=== PATIENT | female | born 1990 | race Caucasian/White ===

== ENCOUNTER 2017-06-10 19:18 | Emergency (ER) | payer OTHER ==
[2017-06-10 19:56] LABS: BASO % 0.2 % (0.0-1.0); EOS # 0.2 10^3/uL (0.0-0.50); EOS % 1.4 % (0.0-3.0); HEMATOCRIT 33.5 % (36.0-47.0); HEMOGLOBIN 11.8 g/dl (12.0-16.0); IMMATURE GRANULOCYTE % 0.3 % (0-0); LYMPH # 2.3 10^3/uL (1.5-6.5); LYMPH % 18.9 % (24.0-44.0); MEAN CORPUSCULAR HEMOGLOBIN 31.5 pg (27.0-33.0); MEAN CORPUSCULAR HGB CONC 35.2 g/dl (32.0-36.5); MEAN CORPUSCULAR VOLUME 89.3 fl (80.0-96.0); MONO # 0.8 10^3/uL (0.0-0.8); NEUTROPHILS # 8.7 10^3/uL (1.8-7.7); NEUTROPHILS % 72.2 % (36.0-66.0); PLATELET COUNT, AUTOMATED 243 10^3/uL (150-450); RED BLOOD COUNT 3.75 10^6/uL (4.00-5.40); RED CELL DISTRIBUTION WIDTH 12.2 % (11.5-14.5); WHITE BLOOD COUNT 12.1 10^3/uL (4.0-10.0)
[2017-06-10 20:35] LABS: HCG, SERUM QUANTITATIVE 36359 MIU/ML
[2017-06-10 21:47] LABS: TYPE AND SCREEN 1 1
[2017-06-10] MEDS: RHOGAM 300 MCG (1500 IU) INJ (J2790) IM (22:08)
== END 2017-06-10 22:29 | disposition home or self-care (01) ==
LOC: M ED 19:18
DX: O20.0 Threatened abortion (principal); O20.8 Other hemorrhage in early pregnancy; Z3A.13 13 weeks gestation of pregnancy; Z88.1 Allergy status to other antibiotic agents; Z88.2 Allergy status to sulfonamides; Z88.8 Allergy status to other drugs, medicaments and biological substances
CPT/HCPCS: 76801

== ENCOUNTER 2017-11-27 15:51 | Outpatient (CLI) | payer OTHER | END 2017-11-27 20:18 | disposition home or self-care (01) | LOC: M LDO 15:51 | DX: O47.03 False labor before 37 completed weeks of gestation, third trimester (principal); Z3A.36 36 weeks gestation of pregnancy; O32.1XX0 Maternal care for breech presentation, not applicable or unspecified; O99.843 Bariatric surgery status complicating pregnancy, third trimester; O99.343 Other mental disorders complicating pregnancy, third trimester; F32.9 Major depressive disorder, single episode, unspecified; F41.9 Anxiety disorder, unspecified | CPT/HCPCS: 76820 ==

== ENCOUNTER 2017-11-30 06:19 | Inpatient (IN) | payer OTHER ==
[2017-11-30] MEDS ORDERED: LR 1,000 ML IV (06:41)
[2017-11-30] MEDS: BUPIVACAINE HCL 0.25% 10 ML VIAL SC (06:45)
[2017-11-30] MEDS: BICITRA 30ML SOLN UDC PO (06:45)
[2017-11-30] MEDS: LACTATED RINGER'S 1000 ML IV (06:45)
[2017-11-30] MEDS ORDERED: MORPHINE PRES-FREE INJ 10 MG/10 ML VIAL (J2274) As Ordered (06:48)
[2017-11-30] MEDS ORDERED: BICITRA 30ML SOLN UDC As Ordered (06:48)
[2017-11-30] MEDS ORDERED: ceFAZolin 2 GM/D5W 50 ML IV BAG (J0690 PER 500MG) As Ordered (06:50)
[2017-11-30] MEDS ORDERED: BUPIVACAINE HCL 0.25% 10 ML VIAL As Ordered (06:52)
[2017-11-30] MEDS ORDERED: BUPIVACAINE HCL 0.25% 30 ML VIAL As Ordered (06:52)
[2017-11-30] MEDS ORDERED: NALBUPHINE HCL 10 MG/ML AMP (J2300) IV ×2 (06:55→08:15)
[2017-11-30] MEDS ORDERED: NALOXONE INJ 0.4 MG/1 ML VIAL (J2310) IV ×2 (06:55)
[2017-11-30 06:56] LABS: HEMATOCRIT 36.6 % (36.0-47.0); HEMOGLOBIN 12.2 g/dl (12.0-15.5); MEAN CORPUSCULAR HEMOGLOBIN 28.5 pg (27.0-33.0); MEAN CORPUSCULAR HGB CONC 33.3 g/dl (32.0-36.5); MEAN CORPUSCULAR VOLUME 85.5 fl (80.0-96.0); PLATELET COUNT, AUTOMATED 224 10^3/uL (150-450); RED BLOOD COUNT 4.28 10^6/uL (4.00-5.40); RED CELL DISTRIBUTION WIDTH 13.3 % (11.5-14.5); WHITE BLOOD COUNT 11.9 10^3/uL (4.0-10.0)
[2017-11-30] MEDS ORDERED: OXYTOCIN INJ 10 UNITS/ML VIAL (J2590) As Ordered ×2 (07:35)
[2017-11-30 07:51] LABS: CORD GAS ABE A -5.3; CORD GAS ABE V -4.5; CORD GAS HCO3 A 22.7 MEQ/L; CORD GAS HCO3 V 21.9 MEQ/L; CORD GAS O2 SAT A 25.3 %; CORD GAS O2 SAT V 36.7 %; CORD GAS PCO2 A 53.9 mmHg; CORD GAS PCO2 V 44.8 mmHg; CORD GAS PH A 7.242 UNITS; CORD GAS PH V 7.307 UNITS; CORD GAS PO2 A 16.6 mmHg; CORD GAS PO2 V 18.8 mmHg; CORD GAS SBC A 18.5 MEQ/L; CORD GAS SBC V 19.3 MEQ/L; CORD GAS TCO2 A 24.3 MEQ/L; CORD GAS TCO2 V 23.3 MEQ/L
[2017-11-30] MEDS ORDERED: OXYTOCIN DRIP 30 UNITS in APPROPRIATE DILUENT 1 EA IV (07:55)
[2017-11-30] MEDS ORDERED: OXYTOCIN INJ 10 UNITS/ML VIAL (J2590) IV (08:00)
[2017-11-30] MEDS ORDERED: METHYLERGONOVINE MALEATE 0.2 MG TAB PO (08:00)
[2017-11-30] MEDS ORDERED: MEASLES,MUMPS,RUBELLA VACCINE INJ (MMR-II) (90707) SC (08:00)
[2017-11-30] MEDS ORDERED: RHOGAM 300 MCG (1500 IU) INJ (J2790) IM (08:00)
[2017-11-30] MEDS ORDERED: ANUSOL HC CREAM 30GM TOP (08:00)
[2017-11-30] MEDS ORDERED: KETOROLAC 30 MG/ML VIAL (J1885) IV (08:00)
[2017-11-30] MEDS ORDERED: DOCUSATE SODIUM 100 MG CAP PO (08:00)
[2017-11-30] MEDS ORDERED: MOM 30ML SUSPENSION UDC PO (08:00)
[2017-11-30] MEDS ORDERED: diphenhydrAMINE INJ 50MG/ML VIAL (J1200) IV (08:15)
[2017-11-30] MEDS ORDERED: HYDROMORPHONE HCL 0.5 MG/ 0.5 ML SYRINGE (J1170 PER 1) IV (08:15)
[2017-11-30] MEDS ORDERED: fentaNYL 100 MCG/2 ML INJECTION (J3010) IV (08:15)
[2017-11-30] MEDS ORDERED: ONDANSETRON 4MG/2ML VIAL (J2405) IV (08:15)
[2017-11-30] MEDS ORDERED: PERCOCET 5MG/325MG TAB PO (08:15)
[2017-11-30] MEDS ORDERED: fentaNYL 100 MCG/2 ML INJECTION (J3010) As Ordered (08:59)
[2017-11-30] MEDS ORDERED: ONDANSETRON 4MG/2ML VIAL (J2405) As Ordered (09:00)
[2017-11-30] MEDS: PRENATAL VITAMINS CHEWABLE TABLET PO (09:00)
[2017-11-30] MEDS: LR 1,000 ML IV ×3 (10:10→23:55)
[2017-11-30] MEDS: METOCLOPRAMIDE INJ 10MG/2ML VIAL (J2765) IV (10:19)
[2017-11-30] MEDS: PERCOCET 5MG/325MG TAB PO ×2 (13:10→20:09)
[2017-11-30] MEDS: ONDANSETRON 4MG/2ML VIAL (J2405) IV (15:36)
[2017-12-01] MEDS: PERCOCET 5MG/325MG TAB PO ×5 (00:19→21:01)
[2017-12-01 07:01] LABS: HEMATOCRIT 31.5 % (36.0-47.0); HEMOGLOBIN 10.3 g/dl (12.0-15.5); MEAN CORPUSCULAR HEMOGLOBIN 28.5 pg (27.0-33.0); MEAN CORPUSCULAR HGB CONC 32.7 g/dl (32.0-36.5); MEAN CORPUSCULAR VOLUME 87.3 fl (80.0-96.0); PLATELET COUNT, AUTOMATED 165 10^3/uL (150-450); RED BLOOD COUNT 3.61 10^6/uL (4.00-5.40); RED CELL DISTRIBUTION WIDTH 13.2 % (11.5-14.5); WHITE BLOOD COUNT 12.3 10^3/uL (4.0-10.0)
[2017-12-01] MEDS: PRENATAL VITAMINS CHEWABLE TABLET PO (08:27)
[2017-12-01] MEDS: MORPHINE 10 MG/ML 1ML VIAL (J2270) IM (19:28)
[2017-12-02] MEDS: PERCOCET 5MG/325MG TAB PO ×3 (01:52→11:40)
[2017-12-02] MEDS: PRENATAL VITAMINS CHEWABLE TABLET PO (08:55)
== END 2017-12-02 12:25 | disposition home or self-care (01) | DRG 766 ==
LOC: M LDO 06:19 → M LDI 06:36 → M OBS 10:00
PROC: 10D00Z1 Extraction of Products of Conception, Low, Open Approach (ICD-10-PCS; principal; 2017-11-30 06:49)
DX: O32.1XX0 Maternal care for breech presentation, not applicable or unspecified (principal); O99.844 Bariatric surgery status complicating childbirth; Z3A.37 37 weeks gestation of pregnancy; E28.2 Polycystic ovarian syndrome; O99.284 Endocrine, nutritional and metabolic diseases complicating childbirth; O99.344 Other mental disorders complicating childbirth; F41.9 Anxiety disorder, unspecified; O69.82X0 Labor and delivery complicated by other cord entanglement, without compression, not applicable or unspecified; Z37.0 Single live birth

== ENCOUNTER 2018-04-23 19:37 | Emergency (ER) | payer OTHER ==
[2018-04-23] MEDS: ONDANSETRON 4 MG ORAL DISINTEGRATING TAB (Q0162 PER 1MG) PO (21:46)
[2018-04-23] MEDS: ACETAMINOPHEN 325 MG TAB PO (21:47)
[2018-04-23 22:01] LABS: BASO % 0.5 % (0.0-1.0); EOS # 0.1 10^3/uL (0.0-0.50); EOS % 1.8 % (0.0-3.0); HEMATOCRIT 35.6 % (36.0-47.0); HEMOGLOBIN 11.4 g/dl (12.0-15.5); IMMATURE GRANULOCYTE % 0.3 % (0-3.0); LYMPH # 2.7 10^3/uL (1.5-6.5); LYMPH % 35.8 % (24.0-44.0); MEAN CORPUSCULAR HEMOGLOBIN 27.7 pg (27.0-33.0); MEAN CORPUSCULAR VOLUME 86.4 fl (80.0-96.0); MONO # 0.6 10^3/uL (0.0-0.8); MONO % 7.2 % (0.0-5.0); NEUTROPHILS # 4.1 10^3/uL (1.8-7.7); NEUTROPHILS % 54.4 % (36.0-66.0); PLATELET COUNT, AUTOMATED 271 10^3/uL (150-450); RED BLOOD COUNT 4.12 10^6/uL (4.00-5.40); RED CELL DISTRIBUTION WIDTH 14.3 % (11.5-14.5); WHITE BLOOD COUNT 7.6 10^3/uL (4.0-10.0)
[2018-04-23 22:18] LABS: CONTROL LINE HCG INT CTR LINE PRESENT; HCG, SERUM QUALITATIVE NEGATIVE (NEGATIVE)
[2018-04-23 22:29] LABS: ANION GAP 10 MEQ/L (8-16); BLOOD UREA NITROGEN 10 MG/DL (7-18); CALCIUM LEVEL 8.3 MG/DL (8.5-10.1); CARBON DIOXIDE LEVEL 27 MEQ/L (21-32); CHLORIDE LEVEL 105 MEQ/L (98-107); CREATININE FOR GFR 0.56 MG/DL (0.55-1.30); GLOMERULAR FILTRATION RATE > 60.0 (>60); GLUCOSE, FASTING 102 MG/DL (70-100); POTASSIUM SERUM 3.7 MEQ/L (3.5-5.1); SODIUM LEVEL 142 MEQ/L (136-145)
[2018-04-24] MEDS: diphenhydrAMINE 50 MG CAP PO (00:43)
[2018-04-24] MEDS: METOCLOPRAMIDE 10 MG TAB PO (00:43)
== END 2018-04-24 00:46 | disposition home or self-care (01) ==
LOC: M ED 04-24 00:46
DX: S06.0X0A Concussion without loss of consciousness, initial encounter (principal); V49.49XA Driver injured in collision with other motor vehicles in traffic accident, initial encounter; Y92.410 Unspecified street and highway as the place of occurrence of the external cause; R55 Syncope and collapse; Z79.899 Other long term (current) drug therapy; Z88.1 Allergy status to other antibiotic agents; Z88.2 Allergy status to sulfonamides; Z88.8 Allergy status to other drugs, medicaments and biological substances
CPT/HCPCS: Q0162

== ENCOUNTER 2020-02-22 18:25 | Emergency (ER) | payer OTHER ==
[~2020-02-22] VITALS: Ht 160 cm; Wt 82.5 kg
[~2020-02-22 18:25] MED LIST: COLA100C5 PO; CYMB60CA3 PO; GAS-80CH PO; OXYC1TAB23 PO; PREN1CHW PO; REGL10TA6 PO
--- NOTE | 2020-02-22 19:25 | REPVR ---
PROCEDURE INFORMATION: Exam: CT Maxillofacial Without Contrast Exam date and time: 02/22/2020 6:51 PM Age: 30 years old Clinical indication: Injury or trauma; Other: Left periorbital trauma; Blunt trauma (contusions or hematomas); Ocular (eye or eyeball) and orbit/periorbital TECHNIQUE: Imaging protocol: Computed tomography images of the face without contrast. Radiation optimization: All CT scans at this facility use at least one of these dose optimization techniques: automated exposure control; mA and/or kV adjustment per patient size (includes targeted exams where dose is matched to clinical indication); or iterative reconstruction. COMPARISON: No relevant prior studies available. FINDINGS: Orbits: Orbits are normal. Globes are unremarkable. Bones/joints: No acute fracture. Paranasal sinuses: Retention cyst right maxillary sinus. Soft tissues: Left periorbital and buccal edema. IMPRESSION: Left periorbital and buccal edema. No fracture. Electronically signed by: Shadi Reece On 02/22/2020 19:25:00 PM
[2020-02-22] MEDS ORDERED: FLUORESCEIN OPHTH 1 MG STRIP OS ONE (19:45)
[2020-02-22] MEDS ORDERED: predniSONE 20 MG TAB PO ONE (20:15)
[2020-02-22 20:16] VITALS: BP 155/97
[2020-02-22] MEDS ORDERED: MEDR4PAK PO (20:17)
== END 2020-02-22 20:25 | disposition home or self-care (01) ==
LOC: M ED 18:25
DX: S05.12XA Contusion of eyeball and orbital tissues, left eye, initial encounter (principal); H11.32 Conjunctival hemorrhage, left eye; H53.8 Other visual disturbances; W51.XXXA Accidental striking against or bumped into by another person, initial encounter; Y92.098 Other place in other non-institutional residence as the place of occurrence of the external cause; F41.9 Anxiety disorder, unspecified; E28.2 Polycystic ovarian syndrome; Z88.8 Allergy status to other drugs, medicaments and biological substances; Z88.2 Allergy status to sulfonamides; Z79.899 Other long term (current) drug therapy